=== PATIENT | female | born 2000 | race Caucasian/White ===

== ENCOUNTER 2023-12-10 17:15 | Emergency (ER) | payer MEDICAID ==
[~2023-12-10] VITALS: Ht 157.5 cm; Wt 54.9 kg
[2023-12-10 17:33] VITALS: BP 117/78; PULSE 59; RESP 20; TEMP 99.1; O2SAT 99
[2023-12-10] MEDS: TRANEXAMIC ACID 1,000 MG/10 ML VIAL MC ONE (18:23)
[2023-12-10] MEDS ORDERED: ACET-10509 PO (18:25)
== END 2023-12-10 18:41 | disposition home or self-care (01) ==
LOC: MED 17:15
DX: S61.011A Laceration without foreign body of right thumb without damage to nail, initial encounter (principal); Z79.1 Long term (current) use of non-steroidal anti-inflammatories (NSAID); W26.0XXA Contact with knife, initial encounter; Y93.89 Activity, other specified; Y92.098 Other place in other non-institutional residence as the place of occurrence of the external cause; Y99.8 Other external cause status
CPT/HCPCS: 99283; J3490

== ENCOUNTER 2024-01-20 09:59 | Emergency (ER) | payer MEDICAID, OTHER ==
[~2024-01-20] VITALS: Ht 157.5 cm; Wt 54.4 kg
[~2024-01-20 09:59] MED LIST: ACET500T99 PO
[2024-01-20 10:15] VITALS: BP 106/63; PULSE 66; RESP 18; TEMP 97.8; O2SAT 99
[2024-01-20 10:39] LABS: APPEARANCE,URINE CLEAR (CLEAR); BILIRUBIN,URINE NEGATIVE (NEGATIVE); BLOOD, URINE NEGATIVE (NEGATIVE); COLOR,URINE YELLOW (YELLOW); LEUKOCYTE ESTERASE ,URINE TRACE (NEGATIVE); NITRITE, URINE NEGATIVE (NEGATIVE); PH,URINE 7.5 (5.0-9.0); PROTEIN,URINE NEGATIVE (NEGATIVE); UGLUCOSE NEGATIVE (NEGATIVE); UROBILINOGEN,URINE 0.2 EU/dL (0.2 - 1)
[2024-01-20 10:51] LABS: BACTERIA,URINE 2+ /HPF (None Seen); MUCUS,URINE 2+ /LPF (None Seen); WBC,URINE 16-25 (MOD) /HPF (0-5)
[2024-01-20] MEDS ORDERED: CEPH-588 PO (11:08)
== END 2024-01-20 11:13 | disposition home or self-care (01) ==
LOC: MED 09:59
DX: N39.0 Urinary tract infection, site not specified (principal); F32.A Depression, unspecified; Z79.899 Other long term (current) drug therapy
CPT/HCPCS: 81001; 81025; 87086; 87186; 99283